=== PATIENT | female | born 1980 | race Caucasian/White ===

== ENCOUNTER 2020-11-22 10:00 | Outpatient (CLI) | payer MEDICAID, SELFPAY ==
[~2020-11-22] VITALS: Ht 167.6 cm; Wt 88.0 kg
[2020-11-26 10:16] LABS: HCG,QUAL RESULT NEGATIVE (NEGATIVE)
[2020-11-26] MEDS ORDERED: ALBUTEROL SULFATE 0.083% 2.5 MG/3 ML VIAL.NEB INH ONE (10:45)
[2020-11-26 11:08] VITALS: BP_SYST 118
== END 2020-11-22 11:00 | disposition home or self-care (01) ==
LOC: SLB 10:00 → SDS 11-26 10:09 → SMU 11-26 10:10 → EDSTATUS 11-26 11:30 → SDS 11-26 12:00 → SMU 11-26 12:00
PROVIDERS: ATTEND Obstetrics & Gynecology
DX: Z30.2 Encounter for sterilization (principal); Z20.822 Contact with and (suspected) exposure to COVID-19; Z53.8 Procedure and treatment not carried out for other reasons
CPT/HCPCS: 36415; 84703; 86886; 86900; 86901; U0003